=== PATIENT | female | born 1975 | race Two or more races ===

== ENCOUNTER 2020-01-12 14:41 | Emergency (ER) | payer MEDICAID ==
[~2020-01-12] VITALS: Ht 157.5 cm; Wt 68.9 kg
--- NOTE | 2020-01-12 15:01 | NUR ---
dizziness x 2 days, c/o room spinning sensation
--- NOTE | 2020-01-12 15:14 | NUR ---
DR ROBLES AT BEDSIDE FOR EVAL.
--- NOTE | 2020-01-12 15:14 | NUR ---
Wale worthy in ED - 01/12/[address] ROBLES AT [facility].
[2020-01-12] MEDS ORDERED: MECLIZINE HCL 25 MG TABLET PO ONE (15:30)
[2020-01-12] MEDS ORDERED: ONDANSETRON 4 MG TAB.RAPDIS SL ONE (15:30)
[2020-01-12] MEDS ORDERED: MECLIZINE HCL 25 MG TABLET ONE (15:39)
[2020-01-12] MEDS ORDERED: ONDANSETRON 4 MG TAB.RAPDIS ONE (15:39)
[2020-01-12 15:46] LABS: APPEARANCE,URINE Clear (CLEAR); BILIRUBIN,URINE Negative (NEGATIVE); BLOOD, URINE Negative Ery/uL (NEGATIVE); COLOR,URINE Yellow (YELLOW); KETONES,URINE Negative (NEGATIVE); LEUKOCYTE ESTERASE ,URINE Negative (NEGATIVE); NITRITE, URINE Negative (NEGATIVE); PROTEIN,URINE Negative (NEGATIVE); UGLUCOSE Negative (NEGATIVE); UROBILINOGEN,URINE 0.2 EU/dL (0.2)
[2020-01-12 16:55] VITALS: BP 105/65
--- NOTE | 2020-01-12 16:55 | NUR ---
Patient discharged to home in stable condition. Written and verbal after care instructions given. Patient verbalizes understanding of instruction.
== END 2020-01-12 16:58 | disposition home or self-care (01) ==
LOC: ER 14:50
DX: R42 Dizziness and giddiness (principal); E03.9 Hypothyroidism, unspecified; Z98.890 Other specified postprocedural states
CPT/HCPCS: 70450; 81001; 84703; 93005; 99285; J8597; Q0162; 81000-TC

== ENCOUNTER 2023-06-04 04:49 | Inpatient (IN) | payer MEDICAID ==
[~2023-06-04] VITALS: Ht 157.5 cm; Wt 65.8 kg
[2023-06-04] MEDS ORDERED: ONDANSETRON HCL/PF 4 MG/2 ML VIAL ONE ×2 (05:13→06:54)
[2023-06-04] MEDS ORDERED: FAMOTIDINE/PF INJ 20 MG/2 ML VIAL IV ONE ×2 (05:14→05:30)
[2023-06-04] MEDS ORDERED: MORPHINE SULFATE INJ 2 MG/ML DISP.SYRIN ONE (05:14)
[2023-06-04] MEDS ORDERED: IV NS 0.9% 1,000 ML BAG IV ONE (05:30)
[2023-06-04] MEDS ORDERED: MORPHINE SULFATE INJ 2 MG/ML DISP.SYRIN IV ONE ×2 (05:30→07:00)
[2023-06-04] MEDS ORDERED: ONDANSETRON HCL/PF 4 MG/2 ML VIAL IVP ONE (05:30)
[2023-06-04 05:31] LABS: BASOPHILS % (AUTO) 0.3 % (0.0-2.0); EOSINOPHILS # (AUTO) 0.1 K/uL (0.0-0.7); EOSINOPHILS % (AUTO) 1.8 % (0.0-6.0); HEMATOCRIT 32 % (33-45); HEMOGLOBIN 10.5 g/dL (11.5-14.8); LYMPHOCYTES # (AUTO) 1.5 K/uL (0.8-4.8); LYMPHOCYTES % (AUTO) 27.2 % (20.0-44.0); MEAN CORPUSCULAR HEMOGLOBIN 25 PG (26.0-33.0); MEAN CORPUSCULAR HGB CONC 32 g/dl (31.0-36.0); MEAN CORPUSCULAR VOLUME 76 fL (82-100); MONOCYTES # (AUTO) 0.4 K/uL (0.1-1.30); MONOCYTES % (AUTO) 8.1 % (2.0-12.0); NEUTROPHILS # (AUTO) 3.4 K/uL (1.8-8.9); NEUTROPHILS % (AUTO) 62.6 % (43.0-81.0); PLATELET COUNT (AUTO) 316 K/uL (150-450); RED BLOOD CELL COUNT(AUTO) 4.27 MIL/uL (4.0-5.2); RED CELL DISTRIBUTION WIDTH 18.2 % (11.5-15.0); WHITE BLOOD COUNT (AUTO) 5.4 K/uL (4.3-11.0)
[2023-06-04 05:46] LABS: ALANINE AMINOTRANSFERASE 31 U/L (12-78); ALBUMIN 3.3 g/dL (3.4-5.0); ALKALINE PHOSPHATASE 91 U/L (46-116); ASPARTATE AMINOTRANSFERASE 17 U/L (15-37); BILIRUBIN,DIRECT 0.1 mg/dL (0.0-0.2); BILIRUBIN,TOTAL 0.2 mg/dL (0.2-1.0); CALCIUM, SERUM 8.9 mg/dL (8.5-10.1); CARBON DIOXIDE 25 mmol/L (21-32); CHLORIDE 103 mmol/L (98-107); CREATININE 0.5 mg/dL (0.6-1.3); GLUCOSE 110 mg/dL (74-106); LIPASE 108 U/L (73-393); POTASSIUM 3.2 mmol/L (3.5-5.1); SODIUM SERUM 138 mmol/L (136-145); TOTAL PROTEIN, SERUM 7.3 g/dL (6.4-8.2); UREA NITROGEN, BLOOD 15 mg/dL (7-18)
[2023-06-04] MEDS ORDERED: POTASSIUM CL. PREMIX PERIPHER. 100 ML ONE (05:59)
[2023-06-04 06:03] LABS: APPEARANCE,URINE CLOUDY (CLEAR); BILIRUBIN,URINE NEGATIVE (NEGATIVE); BLOOD, URINE NEGATIVE Ery/uL (NEGATIVE); COLOR,URINE DARK YELLOW (YELLOW); KETONES,URINE NEGATIVE (NEGATIVE); LEUKOCYTE ESTERASE ,URINE NEGATIVE (NEGATIVE); NITRITE, URINE NEGATIVE (NEGATIVE); PROTEIN,URINE NEGATIVE (NEGATIVE); UGLUCOSE NEGATIVE (NEGATIVE); UROBILINOGEN,URINE 0.2 EU/dL (0.2)
[2023-06-04 06:05] LABS: PREGNANCY TEST URINE QUAL NEGATIVE (NEGATIVE)
[2023-06-04] MEDS: POTASSIUM CL. PREMIX PERIPHER. 50 ML IV SCH ×3 (06:11→08:37)
[2023-06-04] MEDS ORDERED: MORPHINE SULFATE INJ 4 MG/ML DISP.SYRIN ONE (06:55)
[2023-06-04] MEDS ORDERED: ONDANSETRON HCL/PF - ER 4 MG/2 ML VIAL IV ONE (07:00)
[2023-06-04] MEDS ORDERED: PIPERACILLIN /TAZOBACTAM 3.375 G in IV D5W 50 ML IV ONE (07:30)
[2023-06-04] MEDS ORDERED: HYDROMORPHONE 1 MG/1 ML DISP.SYRIN ONE (07:59)
[2023-06-04] MEDS ORDERED: HYDROMORPHONE 1 MG/1 ML DISP.SYRIN IV ONE (08:00)
[2023-06-04] MEDS ORDERED: LEVO200T8 PO (08:16)
[2023-06-04] MEDS ORDERED: POTASSIUM CL. PREMIX PERIPHER. 50 ML ONE (08:28)
[2023-06-04] MEDS ORDERED: Z GUARD REMEDY 4 OZ OINT TP PRN (08:30)
[2023-06-04] MEDS ORDERED: ONDANSETRON HCL/PF 4 MG/2 ML VIAL IVP PRN (08:30)
[2023-06-04 09:00] VITALS: BP 136/79; TEMP 98.2; O2SAT 91
[2023-06-04] MEDS: PANTOPRAZOLE 40 MG VIAL IV SCH (10:58)
[2023-06-04] MEDS ORDERED: POTASSIUM CL. PREMIX PERIPHER. 50 ML IV SCH (11:30)
[2023-06-04] MEDS ORDERED: PIPERACILLIN /TAZOBACTAM 3.375 G in IV D5W 50 ML IV SCH (13:00)
[2023-06-04] MEDS: PIPERACILLIN /TAZOBACTAM 3.375 G in IV D5W 100 ML IV SCH ×2 (15:44→20:48)
[2023-06-04] MEDS: IV NS 0.9% 1,000 ML IV PRN (15:53)
[2023-06-04 16:00] VITALS: BP 136/69; TEMP 98.2; O2SAT 97
[2023-06-04 19:00] VITALS: BP 138/73; TEMP 98.9; O2SAT 98
[2023-06-05] MEDS: PIPERACILLIN /TAZOBACTAM 3.375 G in IV D5W 100 ML IV SCH ×3 (04:25→21:11)
[2023-06-05 05:39] LABS: BASOPHILS % (AUTO) 0.1 % (0.0-2.0); EOSINOPHILS % (AUTO) 0.3 % (0.0-6.0); HEMATOCRIT 31 % (33-45); HEMOGLOBIN 9.8 g/dL (11.5-14.8); LYMPHOCYTES # (AUTO) 0.8 K/uL (0.8-4.8); LYMPHOCYTES % (AUTO) 9.8 % (20.0-44.0); MEAN CORPUSCULAR HEMOGLOBIN 24 PG (26.0-33.0); MEAN CORPUSCULAR HGB CONC 32 g/dl (31.0-36.0); MEAN CORPUSCULAR VOLUME 76 fL (82-100); MONOCYTES # (AUTO) 0.7 K/uL (0.1-1.30); MONOCYTES % (AUTO) 8.3 % (2.0-12.0); NEUTROPHILS # (AUTO) 6.5 K/uL (1.8-8.9); NEUTROPHILS % (AUTO) 81.5 % (43.0-81.0); PLATELET COUNT (AUTO) 299 K/uL (150-450); RED BLOOD CELL COUNT(AUTO) 4.03 MIL/uL (4.0-5.2); RED CELL DISTRIBUTION WIDTH 17.6 % (11.5-15.0)
[2023-06-05 06:00] LABS: CALCIUM, SERUM 8.3 mg/dL (8.5-10.1); CARBON DIOXIDE 27 mmol/L (21-32); CHLORIDE 103 mmol/L (98-107); CREATININE 0.4 mg/dL (0.6-1.3); GLUCOSE 116 mg/dL (74-106); MAGNESIUM 2.1 mg/dL (1.8-2.4); PHOSPHORUS 3.4 mg/dL (2.5-4.9); POTASSIUM 2.9 mmol/L (3.5-5.1); SODIUM SERUM 138 mmol/L (136-145); UREA NITROGEN, BLOOD 8 mg/dL (7-18)
[2023-06-05 06:18] LABS: THYROID STIMULATING HORMONE < 0.007 uIU/mL (0.358-3.74)
[2023-06-05 08:00] VITALS: BP 99/63; TEMP 98.3; O2SAT 98
[2023-06-05] MEDS ORDERED: POTASSIUM CHLORIDE 20 MEQ TAB.PRT.SR PO ONE (08:30)
[2023-06-05] MEDS: PANTOPRAZOLE 40 MG VIAL IV SCH (08:38)
[2023-06-05] MEDS ORDERED: PANTOPRAZOLE 40 MG TABLET.DR PO SCH (09:00)
[2023-06-05 16:00] VITALS: BP 128/64; TEMP 98; O2SAT 97
[2023-06-05] MEDS: HYDROMORPHONE 1 MG/1 ML DISP.SYRIN IV PRN ×2 (17:44→21:28)
[2023-06-05 20:00] VITALS: BP 141/79; TEMP 98.8; O2SAT 97
[2023-06-05] MEDS: IV NS 0.9% 1,000 ML IV PRN (22:00)
[2023-06-06] MEDS ORDERED: LEVO125T8 PO (01:07)
[2023-06-06] MEDS ORDERED: LEVO100T9 PO (01:08)
[2023-06-06] MEDS: HYDROMORPHONE 1 MG/1 ML DISP.SYRIN IV PRN ×3 (02:34→20:38)
[2023-06-06 04:00] VITALS: BP 112/61; TEMP 99.1; O2SAT 95
[2023-06-06] MEDS: PIPERACILLIN /TAZOBACTAM 3.375 G in IV D5W 100 ML IV SCH ×3 (05:23→20:37)
[2023-06-06] MEDS ORDERED: LEVOTHYROXINE SODIUM 75 MCG TABLET PO SCH (07:30)
[2023-06-06 08:00] VITALS: BP 111/60; TEMP 99.4; O2SAT 98
[2023-06-06] MEDS: PANTOPRAZOLE 40 MG VIAL IV SCH (08:16)
[2023-06-06 11:25] LABS: CALCIUM, SERUM 8.1 mg/dL (8.5-10.1); CARBON DIOXIDE 25 mmol/L (21-32); CHLORIDE 101 mmol/L (98-107); CREATININE 0.4 mg/dL (0.6-1.3); GLUCOSE 145 mg/dL (74-106); POTASSIUM 3.3 mmol/L (3.5-5.1); SODIUM SERUM 133 mmol/L (136-145); UREA NITROGEN, BLOOD 4 mg/dL (7-18)
[2023-06-06 11:39] LABS: THYROID STIMULATING HORMONE < 0.007 uIU/mL (0.358-3.74)
[2023-06-06] MEDS: ACETAMINOPHEN 325 MG TABLET PO PRN (18:31)
[2023-06-06 20:00] VITALS: BP 132/69; TEMP 98.6; O2SAT 90
[2023-06-06 20:30] VITALS: O2SAT 95
[2023-06-07 03:10] LABS: PREGNANCY TEST URINE QUAL NEGATIVE (NEGATIVE)
[2023-06-07] MEDS: IV NS 0.9% 1,000 ML IV PRN (04:06)
[2023-06-07] MEDS: PIPERACILLIN /TAZOBACTAM 3.375 G in IV D5W 100 ML IV SCH ×3 (04:06→21:37)
[2023-06-07 05:37] LABS: BASOPHILS % (AUTO) 0.1 % (0.0-2.0); EOSINOPHILS # (AUTO) 0.1 K/uL (0.0-0.7); EOSINOPHILS % (AUTO) 0.7 % (0.0-6.0); HEMATOCRIT 29 % (33-45); HEMOGLOBIN 9.7 g/dL (11.5-14.8); LYMPHOCYTES # (AUTO) 0.7 K/uL (0.8-4.8); LYMPHOCYTES % (AUTO) 8.5 % (20.0-44.0); MEAN CORPUSCULAR HEMOGLOBIN 25 PG (26.0-33.0); MEAN CORPUSCULAR HGB CONC 33 g/dl (31.0-36.0); MEAN CORPUSCULAR VOLUME 75 fL (82-100); MONOCYTES # (AUTO) 0.8 K/uL (0.1-1.30); MONOCYTES % (AUTO) 9.2 % (2.0-12.0); NEUTROPHILS # (AUTO) 6.8 K/uL (1.8-8.9); NEUTROPHILS % (AUTO) 81.5 % (43.0-81.0); PLATELET COUNT (AUTO) 284 K/uL (150-450); WHITE BLOOD COUNT (AUTO) 8.4 K/uL (4.3-11.0)
[2023-06-07 05:55] LABS: CALCIUM, SERUM 8.1 mg/dL (8.5-10.1); CREATININE 0.4 mg/dL (0.6-1.3); POTASSIUM 3.2 mmol/L (3.5-5.1)
[2023-06-07 07:00] VITALS: BP 97/58; TEMP 99.4; O2SAT 96
[2023-06-07] MEDS ORDERED: POTASSIUM CHLORIDE 20 MEQ TAB.PRT.SR PO ONE (09:00)
[2023-06-07] MEDS: ACETAMINOPHEN 325 MG TABLET PO PRN (09:06)
[2023-06-07] MEDS: PANTOPRAZOLE 40 MG TABLET.DR PO SCH (09:06)
[2023-06-07] MEDS ORDERED: BUPIVACAINE MPF 0.5% W/EPI INJ 30 ML VIAL ONE (09:41)
[2023-06-07] MEDS ORDERED: LIDOCAINE 1% INJ 50 ML MDV IJ ONE (09:41)
[2023-06-07] MEDS ORDERED: ANESTHESIA TRAY IN PYXIS 1 EA TRAY MC ONE ×2 (09:41→09:44)
[2023-06-07] MEDS ORDERED: FENTANYL PF 250MCG/5ML AMPUL ONE (11:49)
[2023-06-07] MEDS ORDERED: HYDROMORPHONE INJ 2 MG/ML DISP.SYRIN ONE (11:49)
[2023-06-07] MEDS ORDERED: ROCURONIUM BROMIDE 50 MG/5 ML ONE (11:50)
[2023-06-07] MEDS ORDERED: MIDAZOLAM HCL 2 MG/2ML VIAL ONE (11:50)
[2023-06-07] MEDS ORDERED: FAMOTIDINE/PF INJ 20 MG/2 ML VIAL IV ONE (11:50)
[2023-06-07] MEDS ORDERED: HEMOSTATIC MATRIX 8 ML 1 EACH PAD MC ONE (13:50)
[2023-06-07 16:00] VITALS: BP 155/82; TEMP 99.1; O2SAT 96
[2023-06-07] MEDS: HYDROMORPHONE 1 MG/1 ML DISP.SYRIN IV PRN (17:25)
[2023-06-07 20:00] VITALS: BP 123/66; TEMP 97.6; O2SAT 94
[2023-06-08] MEDS: HYDROMORPHONE 1 MG/1 ML DISP.SYRIN IV PRN ×3 (02:53→21:16)
[2023-06-08] MEDS: PIPERACILLIN /TAZOBACTAM 3.375 G in IV D5W 100 ML IV SCH ×3 (05:05→20:39)
[2023-06-08] MEDS: IV NS 0.9% 1,000 ML IV PRN (05:46)
[2023-06-08 08:00] VITALS: BP 139/76; TEMP 98.7; O2SAT 97
[2023-06-08] MEDS: PANTOPRAZOLE 40 MG TABLET.DR PO SCH (09:00)
[2023-06-08] MEDS: ACETAMINOPHEN 325 MG TABLET PO PRN ×2 (11:57→18:49)
[2023-06-08 16:00] VITALS: BP 110/61; TEMP 98.4; O2SAT 97
[2023-06-08 20:00] VITALS: BP 122/68; TEMP 99.2; O2SAT 96
[2023-06-09] MEDS: HYDROMORPHONE 1 MG/1 ML DISP.SYRIN IV PRN ×3 (01:52→13:55)
[2023-06-09] MEDS: PIPERACILLIN /TAZOBACTAM 3.375 G in IV D5W 100 ML IV SCH ×2 (04:55→13:14)
[2023-06-09 08:00] VITALS: BP 122/64; TEMP 98.6; O2SAT 97
[2023-06-09] MEDS: PANTOPRAZOLE 40 MG TABLET.DR PO SCH (08:11)
[2023-06-09 16:00] VITALS: BP 107/62; TEMP 98.5; O2SAT 96
[2023-06-09 20:00] VITALS: BP 104/68; TEMP 98.9; O2SAT 97
== END 2023-06-09 20:45 | disposition home or self-care (01) | DRG 263 ==
LOC: ER 05:11 → MED 09:06
PROVIDERS: ADMIT Nurse Practitioner Acute Care; ATTEND Internal Medicine
PROC: 0FT44ZZ Resection of Gallbladder, Percutaneous Endoscopic Approach (ICD-10-PCS; principal; 2023-06-07)
DX: K80.01 Calculus of gallbladder with acute cholecystitis with obstruction (principal); K82.1 Hydrops of gallbladder; D50.9 Iron deficiency anemia, unspecified; E87.6 Hypokalemia; K57.30 Diverticulosis of large intestine without perforation or abscess without bleeding; E89.0 Postprocedural hypothyroidism; Z85.850 Personal history of malignant neoplasm of thyroid
CPT/HCPCS: 36415; 71045-TC; 76705-TC; 80048-TC; 80076-TC; 82962-TC; 83690-TC; 83735-TC; 84100-TC; 84439-TC; 84443-TC; 84481; 84484-TC; 84702-TC; 84703-TC; 85025-TC; 86850-TC; 87086-TC; 88304-TC; A4217; A4223; C9113; G0378; J0690; J1100; J1170; J1885; J2250; J2270; J2405; J2543; J2704; J2765; J3010; J3480; J3490; J7030; J7060

== ENCOUNTER 2023-07-25 23:52 | Emergency (ER) | payer MEDICAID ==
[~2023-07-25] VITALS: Ht 162.6 cm; Wt 59.0 kg
[~2023-07-25 23:52] MED LIST: LEVO100T9 PO; LEVO125T8 PO
[2023-07-26 01:05] VITALS: BP 117/83; TEMP 98; O2SAT 100
== END 2023-07-26 01:19 | disposition home or self-care (01) ==
LOC: ER 23:55
DX: Z00.8 Encounter for other general examination (principal); E03.9 Hypothyroidism, unspecified; Z79.899 Other long term (current) drug therapy

== ENCOUNTER 2024-10-18 22:04 | Emergency (ER) | payer MEDICAID ==
[~2024-10-18] VITALS: Ht 157.5 cm; Wt 64.4 kg
[2024-10-18 23:44] LABS: APPEARANCE,URINE CLEAR (CLEAR); BILIRUBIN,URINE NEGATIVE (NEGATIVE); BLOOD, URINE NEGATIVE Ery/uL (NEGATIVE); COLOR,URINE YELLOW (YELLOW); KETONES,URINE NEGATIVE (NEGATIVE); LEUKOCYTE ESTERASE ,URINE NEGATIVE (NEGATIVE); NITRITE, URINE NEGATIVE (NEGATIVE); PH,URINE 8.5 (5.0-8.0); PROTEIN,URINE NEGATIVE (NEGATIVE); UGLUCOSE NEGATIVE (NEGATIVE); UROBILINOGEN,URINE 0.2 EU/dL (0.2)
[2024-10-18 23:45] LABS: PREGNANCY TEST URINE QUAL NEGATIVE (NEGATIVE)
[2024-10-18] MEDS ORDERED: PANTOPRAZOLE 40 MG VIAL ONE (23:45)
[2024-10-18] MEDS ORDERED: ONDANSETRON HCL/PF 4 MG/2 ML VIAL ONE (23:45)
[2024-10-18] MEDS: ONDANSETRON HCL/PF 4 MG/2 ML VIAL IVP ONE (23:46)
[2024-10-18] MEDS: IV NS 0.9% 1,000 ML BAG IV ONE (23:46)
[2024-10-18] MEDS: PANTOPRAZOLE 40 MG VIAL IV ONE (23:46)
[2024-10-18 23:56] LABS: BASOPHILS % (AUTO) 0.1 % (0.0-2.0); EOSINOPHILS % (AUTO) 0.4 % (0.0-6.0); HEMATOCRIT 33 % (33-45); HEMOGLOBIN 10.8 g/dL (11.5-14.8); LYMPHOCYTES # (AUTO) 0.3 K/uL (0.8-4.8); LYMPHOCYTES % (AUTO) 5.2 % (20.0-44.0); MEAN CORPUSCULAR HEMOGLOBIN 26 PG (26.0-33.0); MEAN CORPUSCULAR HGB CONC 33 g/dl (31.0-36.0); MEAN CORPUSCULAR VOLUME 77 fL (82-100); MONOCYTES # (AUTO) 0.5 K/uL (0.1-1.30); MONOCYTES % (AUTO) 8.2 % (2.0-12.0); NEUTROPHILS # (AUTO) 5.5 K/uL (1.8-8.9); NEUTROPHILS % (AUTO) 86.1 % (43.0-81.0); PLATELET COUNT (AUTO) 291 K/uL (150-450); RED BLOOD CELL COUNT(AUTO) 4.23 MIL/uL (4.0-5.2); RED CELL DISTRIBUTION WIDTH 18.5 % (11.5-15.0); WHITE BLOOD COUNT (AUTO) 6.4 K/uL (4.3-11.0)
[2024-10-19] MEDS ORDERED: AMOX-430 PO (00:30)
[2024-10-19] MEDS ORDERED: ONDA4TAB5 PO (00:30)
[2024-10-19] MEDS ORDERED: IBUP-1490 PO (00:30)
[2024-10-19 00:48] LABS: CREATININE 0.5 mg/dL (0.6-1.3); POTASSIUM 3.2 mmol/L (3.5-5.1)
[2024-10-19 00:53] LABS: ALBUMIN 3.8 g/dL (3.4-5.0); BILIRUBIN,DIRECT 0.1 mg/dL (0.0-0.2); BILIRUBIN,TOTAL 0.6 mg/dL (0.2-1.0); TOTAL PROTEIN, SERUM 7.9 g/dL (6.4-8.2)
[2024-10-19 02:04] VITALS: BP 104/66; TEMP 98.1; O2SAT 98
== END 2024-10-19 02:04 | disposition home or self-care (01) ==
LOC: ER 22:18
DX: K52.9 Noninfective gastroenteritis and colitis, unspecified (principal); E03.9 Hypothyroidism, unspecified; Z85.850 Personal history of malignant neoplasm of thyroid; Z90.49 Acquired absence of other specified parts of digestive tract
CPT/HCPCS: 99285; 74176; 96374; 96361; 96375; 85025; 80048; 83690; 80076; 84703; 81003; 36415; J2405; J7030; J2470